=== PATIENT | female | born 1980 | race Two or more races ===

== ENCOUNTER 2020-09-25 09:24 | Emergency (ER) | payer SELFPAY ==
[~2020-09-25] VITALS: Ht 154.9 cm; Wt 82.1 kg
[2020-09-25 09:45] VITALS: BP 143/94
== END 2020-09-25 10:05 | disposition home or self-care (01) ==
LOC: ER 09:30
DX: I10 Essential (primary) hypertension (principal); E11.9 Type 2 diabetes mellitus without complications; E66.9 Obesity, unspecified; Z68.34 Body mass index [BMI] 34.0-34.9, adult